=== PATIENT | female | born 1980 | race African-American/Black ===

== ENCOUNTER 2017-11-16 19:18 | Observation (INO) | payer OTHER ==
[~2017-11-16 19:18] MED LIST: ALIVE WOMEN'S1 EAC1 PO; AMLODIPINE BESY10 M1 PO; CITALOPRAM HBR10 MG PO; ELIQUIS5 M1 PO; FERRAPLUS 90 T1 EACH PO; HYDROCHLOROTH12.5 M3 PO; HYDROCHLOROTHIA25 M1 PO; IBUPROFEN800 M1 PO; JANUMET 50-1,01 EACH PO; LABETALOL HCL100 M1 PO; LISINOPRIL-HCT1 EAC1 PO; LISINOPRIL40 M1 PO; ULTRAM50 M1 PO; [UNRECOGNIZED DRUG - OTHER]
--- NOTE | 2017-11-16 20:56 | RADIOLOGY REPORT ---
EXAMINATION: CHEST 2 VIEWS CLINICAL INFORMATION: Shortness of breath. COMPARISON: 10/10/2016. TECHNIQUE: PA and lateral views of the chest were obtained. FINDINGS: The cardiac silhouette is enlarged, though stable. The mediastinal and hilar contours are unremarkable. There are neither pleural effusions nor pneumothoraces. There are no consolidations. The osseous structures are stable. There is stable widening to the right AC joint. IMPRESSION: No evidence for acute disease. Stable cardiomegaly.
--- NOTE | 2017-11-16 21:13 | ED INFLUENZA/URI COMPLAINT ---
History of Present Illness General Chief Complaint: General Adult Stated Complaint: PT SAYS CHEST HURT FOR 2XWKS AND DRY COUGH Source: patient Exam Limitations: no limitations Vital Signs & Intake/Output Vital Signs & Intake/Output Vital Signs Date Time Temp Pulse Resp B/P B/P Pulse O2 O2 Flow FiO2 Mean Ox Delivery Rate 11/17 0829 97.8 79 18 155/82 99 Room Air 11/17 0451 99.1 81 20 142/74 100 Room Air 11/16 2344 92 16 143/76 99 Room Air Room Air 11/16 2155 Room Air 11/16 1956 98.3 110 20 170/88 97 ED Intake and Output 11/17 0000 11/16 1200 Intake Total Output Total Balance Patient 285 lb Weight Allergies Coded Allergies: No Known Allergies (04/09/16) Triage Note: PER PT DRY PERSISTANT COUGH SINCE , PT HAS BEEN ON 2 COURSES OF ANTIBIOTICS. PT HAS SEEN AND WAS TOLD AN ENLARGED HEART BUT IS WAITING FOR AN ECHO APPT, HOWEVER PT CONT WITH DRY COUGH PT IS ON LISINOPRIL, ELIQUIS TIRED OF COUGHING REPORTS SOB WITH ACTIVITY Triage Nurses Notes Reviewed? yes Onset: Gradual Duration: constant Timing: recent history Severity: moderate Severity Numbers: 5 : No Patient currently breastfeeds: No HPI: Patient is a 36-year-old female with past medical history of hypertension on lisinopril and pulmonary embolism on ELIQUIS AND IRON DEF ANEMIA who presents emergency room stating that for the past 3 months patient has been complaining of a persistent hacking dry cough and which she has been evaluated on multiple occasions with primary care doctor and was given 2 dosings of medications of antibiotics with no relief of symptoms 3 weeks ago patient has been complaining of intermittent chest heaviness and dyspnea on exertion Patient does state that she decreased the dose per her administrative medical director Dr. Ashby of the ELIQUIS in the past month, patient denies any hemoptysis leg swelling nausea vomiting Patient denies any vaginal bleeding or bright red blood or melena after bowel movements Denies any active bleeding denies any abdominal pain Last bowel movement was within last 24 hours no blood no melena noted (Kita OSMAN,Kristofer) Reconcile Medications Amlodipine Besylate 10 MG TABLET 1 TAB PO DAILY HTN (Reported) Apixaban (Eliquis) 2.5 MG TABLET 1 TAB PO BID BLOOD THINNER (Reported) Hydrochlorothiazide 25 MG TABLET 1 TAB PO DAILY high blood pressure Labetalol HCl 100 MG TABLET 100 MG PO BID hypertension Losartan Potassium (Cozaar) 50 MG TABLET 1 TAB PO DAILY HTN Sitagliptin Phos/Metformin HCl (Janumet 50-1,000 MG Tablet) 50 MG-1,000 MG TABLET 1 TAB PO BID PRE-DIABETES (Reported) (Philippe Salmon MD) Past History Travel History Traveled to [place] past 21 day No Medical History Any Pertinent Medical History? see below for history Neurological: NONE EENT: NONE Cardiovascular: hypertension Respiratory: pulmonary embolism Gastrointestinal: NONE Hepatic: NONE Renal: NONE Musculoskeletal: NONE Psychiatric: NONE Endocrine: NONE Blood Disorders: NONE Cancer(s): NONE History of MRSA: No History of VRE: No History of CDIFF: No Surgical History Surgical History: non-contributory Psychosocial History Who do you live with Significant Other Services at Home None What is your primary language Yoruba Tobacco Use: Never used Family History Family History, If Any: FATHER DVT Pulmonary embolism Hx Contributory? No (Kristofer Alvarez) Review of Systems Review of Systems Constitutional: Reports: no symptoms. EENTM: Reports: no symptoms. Respiratory: Reports: see HPI. Cardiovascular: Reports: see HPI. GI: Reports: no symptoms. Genitourinary: Reports: no symptoms. Musculoskeletal: Reports: no symptoms. Skin: Reports: no symptoms. Neurological/Psychological: Reports: no symptoms. Hematologic/Endocrine: Reports: no symptoms. Immunologic/Allergic: Reports: no symptoms. All Other Systems: Reviewed and Negative (Kristofer Alvarez) Physical Exam Physical Exam General Appearance: no apparent distress, alert Head: atraumatic Eyes: Bilateral: normal appearance. Ears, Nose, Throat: normal ENT inspection, moist mucous membrane, hearing grossly normal Neck: normal inspection Respiratory: normal breath sounds, chest non-tender, no respiratory distress Cardiovascular: regular rate/rhythm Peripheral Pulses: 2+ radial (R) Gastrointestinal: normal bowel sounds, soft, non-tender Rectal: normal exam, normal rectal tone, heme negative stool Extremities: normal inspection, normal capillary refill, normal range of motion, no edema Neurologic/Psych: no motor/sensory deficits, awake, alert, oriented x 3 Skin: intact, normal color, warm/dry Core Measures Sepsis Present: No Sepsis Focused Exam Completed? No (Kristofer Alvarez) Progress Differential Diagnosis: influenza, meningitis, neutropenia, otitis, pneumonia, pharyngitis, sinusitis Plan of Care: Orders Procedure Date/time Status Regular Diet 11/17 B Active Discharge Patient 11/17 0905 Active Intake & Output 11/17 0608 Active BLOOD PRODUCT PICKUP 11/17 0446 Active BLOOD PRODUCT PICKUP 11/17 0125 Active LEUKOCYTE POOR (PACKED CELLS) 11/16 2256 Active OXYGEN SETUP (GEN) 11/16 2255 Active Saline Lock 11/[address] in observation 11/16 2255 Active Patient Data 11/16 2255 Active Vital Signs 11/16 2255 Active Activity/Ambulation 11/16 2255 Active Code Status 11/16 2255 Active Add-on Test (ER Only) 11/16 2243 Active TYPE & SCREEN (NOT X-MATCH) 11/16 2243 Complete Add-on Test (ER Only) 11/16 2232 Active Add-on Test (ER Only) 11/16 2223 Active PROTHROMBIN TIME 11/16 2149 Complete HUMAN BETA HCG SCREEN 11/16 2149 Complete B-TYPE NATRIURETIC PEP (BNP) 11/16 2149 Complete TROPONIN LEVEL 11/16 2122 Complete D-DIMER 11/16 2122 Complete COMPREHENSIVE METABOLIC PANEL 11/16 2122 Complete CBC WITHOUT DIFFERENTIAL 11/16 2122 Complete EKG 11/16 2122 Active Laboratory Tests 11/16/172149: Anion Gap 15, Estimated GFR > 60, BUN/Creatinine Ratio 7.8, Glucose 117 H, Calcium 9.3, Total Bilirubin 0.2, AST 21, ALT 25, Alkaline Phosphatase 59, Troponin I < 0.01, Rvw-[id number]-Zvpgjxjzuin Pept 84.9, Total Protein 7.9, Albumin 4.4, Globulin 3.5, Albumin/Globulin Ratio 1.3, Total Beta HCG NEGATIVE, PT 12.9 H, INR 1.23 H, D-Dimer High Sensitivty 548 H, CBC w Diff MAN DIFF ORDERED, RBC 3.85 L, MCV 55.3 L, MCH 15.9 L, MCHC 28.7 L, RDW 20.1 H, MPV 6.6 L, Segmented Neutrophils 61, Band Neutrophils 1, Lymphocytes 30, Monocytes 6, Eosinophils 1, Basophils 1, Platelet Estimate ADEQUATE, Polychromasia 1+, Hypochromic-Microcytic 1+, Poikilocytosis 1+, Anisocytosis 1+, Microcytic Cells 3+, Target Cells FEW, Ovalocytes FEW, Stomatocytes FEW Differential diagnosis include pulmonary embolism CHF cardiomyopathy, patient on initial presentation was resting comfortably bedside however due to past medical history of pulmonary embolism d-dimer will be evaluated for concerns of a 3 week history of shortness of breath and chest pressure, chest x-ray shows no concern of acute process or PLEURAL EFFUSION, CXR shows stable cardiomegaly DUE TO patient's history of present illness and exam findings there is CONCERN OF adverse drug reaction of the RASHID inhibitor lisinopril for patient's persistent 3 month history of cough Patient has critical findings of anemia patient denies any acute blood loss concerns most likely it is due to chronic anemia of iron deficiency Patient's fecal occult blood test was negative Discussed hand off with was CT angiogram is pending patient will receive 2 units of packed red blood cells Patient will be placed in ED observation Diagnostic Imaging: Viewed by Me: Radiology Read. CXR Impression: no acute abnormality, no infiltrates Initial ED EKG: normal p-waves, normal QRS complex, 88 BPM,NSR Hand-Off Endorsed To: Philippe Salmon MD Endorsed Time: 2315 Pending: CT, other (TRANSFUSION) Comments: PATIENT: KEM MCGRAW PRESENT AGE: 36 PATIENT ACCOUNT NO: [id number] : 80 LOCATION: [facility] ORDERING PHYSICIAN: Ming Banda DO SERVICE DATE: 11/16/17 EXAM TYPE: RAD - XRY-CHEST XRAY, TWO VIEWS EXAMINATION: CHEST 2 VIEWS CLINICAL INFORMATION: Shortness of breath. COMPARISON: 10/10/2016. TECHNIQUE: PA and lateral views of the chest were obtained. FINDINGS: The cardiac silhouette is enlarged, though stable. The mediastinal and hilar contours are unremarkable. There are neither pleural effusions nor pneumothoraces. There are no consolidations. The osseous structures are stable. There is stable widening to the right AC joint. IMPRESSION: No evidence for acute disease. Stable cardiomegaly. DICTATED BY: Alan Teague MD DATE/TIME DICTATED:11/16/172051 [employer] ENG[employer]ER:ANTHONY DATE/TIME TRANSCRIBED:11/16/172051 (Kristofer Alvarez) Radiology Impression: No CT evidence for pulmonary embolism. Hepatic steatosis. Hand-Off Endorsed To: Ming Lorenz MD Endorsed Time: 0700 Pending: other (Luis Antonio HERNANDEZ,Philippe) Comments: 11/17/2017 7:13:29 AM patient signed out to me by Dr. Salmon at shift change room attendant. 11/17/2017 8:31:04 AM patient's transfusion is completed. She has no complaint at this time. She appears comfortable and conversant. (Gerda HERNANDEZ,Ming Vital) Departure Departure Disposition: STILL A PATIENT Condition: Stable Clinical Impression Primary Impression: Symptomatic anemia Secondary Impressions: Cough due to RASHID inhibitor Referrals: Uzair Salazar MD (PCP/Family) Departure Forms: Customer Survey General Discharge Information Prescriptions: Current Visit Scripts Losartan Potassium (Cozaar) 1 TAB PO DAILY #30 TAB (Kristofer Alvarez) PA/SOLDER DEPOSIT OPERATOR Co-Sign Statement Statement: ED Attending supervision documentation- x I saw and evaluated the patient. I have also reviewed all the pertinent lab results and diagnostic results. I agree with the findings and the plan of care as documented in the PA's/SOLDER DEPOSIT OPERATOR's documentation. [] I have reviewed the ED Record and agree with the PA's/SOLDER DEPOSIT OPERATOR's documentation. [] Additions or exceptions (if any) to the PAs/SOLDER DEPOSIT OPERATOR's note and plan are summarized below: [] (Philippe Salmon MD) Departure Additional Instructions: Follow-up with your primary care physician for reevaluation of your blood counts early next week. Return if any concerns or sudden worsening. Please note that there might be incidental findings in your evaluation that are unrelated to the current emergency department visit. Please notify your primary care doctor about this emergency department visit in order to obtain and review all of the testing performed so that these incidental findings can be monitored as needed. If you had an x-ray performed, please understand that some fractures may not be seen on the initial set of x-rays. If your symptoms persist you might need a repeat set of x-rays to check for such a fracture. If you had a laceration evaluated, please understand that foreign bodies such as glass or wood may not be visible to the naked eye or on plain x-rays. If the wound becomes red, swollen, increasingly more painful or if there is any drainage from the wound, please have it reevaluated by a physician for the possibility of a retained foreign body. If you're unable to follow up as outlined in the discharge instructions please return to the emergency department. Thank you for choosing the [facility] Emergency Department for your care. It was a pleasure to serve you today. Ming Lorenz M.D. [facility] (Gerda HERNANDEZ,Ming Vital) Critical Care Note Critical Care Note Critical Care Time: 75-104 min (Kita OSMAN,Kristofer) ED Attending Observation Initial Observation Note: I have seen and personally examined KEM MCGRAW on 11/17/17 at 0225. I agree with the current emergency department documentation. The disposition (admission or discharge) is uncertain at this time, she needs a period of observation for the following reason(s): symptomatic anemia The ED Nurse caring for this patient has been personally informed as to what the patient is being observed for. (Luis Antonio HERNANDEZ,Philippe) Observation Re-Evaluation: I have reevaluated KEM MCGRAW on 11/17/17 at 0833. The physical findings that support the continued need to observe this patient include [SEE NOTES]. Observation Discharge: I have reevaluated KEM MCGRAW on 11/17/17 at 0905. The patient is: ([X]): Stable for discharge (): To be admitted to Nursing Floor (): To be placed in Observation on Nursing Floor (): For transfer to other facility The patient was being observed for chest pain associated with anemia As a result of that observation, I have determined the patient has improved enough for outpatient management. (Gerda HERNANDEZ,Ming Vital)
[2017-11-16 22:08] LABS: HEMATOCRIT 21.3 % (37-47); MEAN CORPUSCULAR HGB 15.9 PG (27.0-31.0); MEAN PLATELET VOLUME 6.6 FL (7.4-10.4)
[2017-11-16 22:12] LABS: MEAN CORPUSCULAR HGB CONC 28.7 G/DL (33.0-37.0); MEAN CORPUSCULAR VOLUME 55.3 FL (81.0-99.0); PLATELET COUNT 531 /CUMM (130-400); RBC DISTRIBUTION WIDTH 20.1 % (11.5-14.5); RED BLOOD CELL CT 3.85 /CUMM (4.20-5.40); WHITE BLOOD CELL COUNT 10.8 /CUMM (4.8-10.8)
[2017-11-16 22:50] LABS: PT 12.9 SEC (9.4-12.5)
[2017-11-16] MEDS ORDERED: COZAAR50 M1 PO (23:06)
[2017-11-16] MEDS ORDERED: ELIQUIS2.5 M1 PO (23:17)
--- NOTE | 2017-11-16 23:56 | CT SCAN REPORT ---
EXAMINATION: CT PULMONARY EMBOLISM STUDY CLINICAL INFORMATION: Shortness of breath. History of prior pulmonary embolism. COMPARISON: 10/10/2016. TECHNIQUE: Contiguous helical images of the chest were obtained following the administration of IV contrast. Multiplanar reconstructions were performed. MIPS were obtained and reviewed. DLP: 574 mGy-cm. CONTRAST: Contrast FINDINGS: The heart is of stable size. There is no pericardial effusion. The great vessels are unremarkable. Specifically, there is no pulmonary arterial filling defect. There is no CT evidence for pulmonary embolism. There are no chest wall masses. Review of lung windows demonstrates that there are neither pleural effusions nor pneumothoraces. There are no consolidations. There are no pulmonary parenchymal nodules. Limited evaluation of the upper abdomen demonstrates that the liver is of normal size and diffuse decreased attenuation without focal lesions. A lap band is in appropriate orientation. The patient is status post cholecystectomy. Surgical clips are identified. Normal adrenal glands are identified. IMPRESSION: No CT evidence for pulmonary embolism. Hepatic steatosis.
[2017-11-17 09:30] VITALS: BP 150/78
== END 2017-11-17 10:00 ==
LOC: ERH 19:18 → ERHI 22:56
PROVIDERS: Physician Assistant
DX: D50.9 Iron deficiency anemia, unspecified (principal); I10 Essential (primary) hypertension; Z86.711 Personal history of pulmonary embolism; Z79.01 Long term (current) use of anticoagulants; R05 Cough
CPT/HCPCS: 6090; 71046; 86920; 93005; 93010; 99291; G0378; P9016